=== PATIENT | female | born 1995 | race American Indian/Alaskan Native ===

== ENCOUNTER 2018-05-23 11:33 | Emergency (ER) | payer MEDICAID, OTHER ==
[2018-05-23 12:00] VITALS: BP 138/87
[2018-05-23 12:45] LABS: Bilirubin,Urine NEG (Negative); Blood,Urine NEG (Negative); Color,Urine Yellow (Yellow); Mucus,Urine FEW /HPF
[2018-05-23 12:46] LABS: HCG Qualitative,Urine Negative (Negative)
[2018-05-23] MEDS ORDERED: DUONEB *Not for PRN Use IH ONE (13:04)
--- NOTE | 2018-05-23 13:08 | Emergency Department Report ---
- General Chief Complaint: Upper Respiratory Infection Stated Complaint: FLU LIKE SYMPTOMS/ASTHMA Time Seen by Provider: 05/23/18 13:04 Source: patient Mode of arrival: Ambulatory Limitations: No Limitations - History of Present Illness Initial Comments: Patient reports wheezing, productive cough with green mucus, nasal drainage, chest tightness with generalized discomfort that started one week ago MD Complaint: cough, nasal congestion Onset/Timin -: week(s) Severity: severe Severity scale (0 -10): 10 Quality: dull Consistency: constant Improves With: nothing Worsens With: activity, deep breaths, changing head position Context: sick contacts Associated Symptoms: fever, rhinorrhea, nasal congestion, cough. denies: chills , myalgias, diaphoresis, headache, sore throat, stiff neck, chest pain, shortness of breath, abdominal pain, nausea, vomiting, diarrhea, dysuria, rash, confusion, right sweats, weight loss, epistaxis, hoarseness, ear pain Treatments Prior to Arrival: other (inhaler) - Related Data Home Medications Medication Instructions Recorded Confirmed Last Taken ALBUTEROL Inhaler [ProAir HFA 01/12/14 01/12/14 Unknown Inhaler] ALBUTEROL NEB's [Proventil 0.083% 01/12/14 01/12/14 Unknown NEBS] Previous Rx's Medication Instructions Recorded Last Taken Type Acetaminophen/Codeine [Tylenol 1 tab PO Q6H PRN #15 tab 05/23/18 Unknown Rx /Codeine # 3 tab] Albuterol Sulfate [Ventolin HFA] 2 puff IH Q4H PRN #1 hfa.aer.ad 05/23/18 Unknown Rx Azithromycin [Zithromax Z-BIENVENIDO] 250 mg PO DAILY #6 tablet 05/23/18 Unknown Rx Loratadine [Claritin] 10 mg PO DAILY #15 tablet 05/23/18 Unknown Rx predniSONE [Deltasone] 20 mg PO BID #10 tablet 05/23/18 Unknown Rx Allergies Allergy/AdvReac Type Severity Reaction Status Date / Time No Known Allergies Allergy Unverified 01/12/14 15:47 ED Review of Systems ROS: Stated complaint: FLU LIKE SYMPTOMS/ASTHMA Other details as noted in HPI Constitutional: denies: chills, fever Eyes: denies: eye pain, eye discharge, vision change ENT: congestion (nasal). denies: ear pain, throat pain, dental pain, hearing loss, epistaxis Respiratory: cough, wheezing. denies: orthopnea, shortness of breath, SOB with exertion, SOB at rest, stridor Cardiovascular: other (chest tightness). denies: chest pain, palpitations, dyspnea on exertion, orthopnea Endocrine: no symptoms reported Gastrointestinal: denies: abdominal pain, nausea, diarrhea Genitourinary: denies: urgency, dysuria, discharge Musculoskeletal: denies: back pain, joint swelling, arthralgia Skin: denies: rash, lesions Neurological: denies: headache, weakness, paresthesias Psychiatric: denies: anxiety, depression Hematological/Lymphatic: denies: easy bleeding, easy bruising ED Past Medical Hx - Past Medical History Hx Asthma: Yes Additional medical history: cardiac arrest with childbirth 2014,intubated - Surgical History Additional Surgical History: - Social History Smoking Status: Never Smoker Substance Use Type: None - Medications Home Medications: Home Medications Medication Instructions Recorded Confirmed Last Taken Type ALBUTEROL Inhaler [ProAir HFA 01/12/14 01/12/14 Unknown History Inhaler] ALBUTEROL NEB's [Proventil 0.083% 01/12/14 01/12/14 Unknown History NEBS] Acetaminophen/Codeine [Tylenol 1 tab PO Q6H PRN #15 tab 05/23/18 Unknown Rx /Codeine # 3 tab] Albuterol Sulfate [Ventolin HFA] 2 puff IH Q4H PRN #1 hfa.aer.ad 05/23/18 Unknown Rx Azithromycin [Zithromax Z-BIENVENIDO] 250 mg PO DAILY #6 tablet 05/23/18 Unknown Rx Loratadine [Claritin] 10 mg PO DAILY #15 tablet 05/23/18 Unknown Rx predniSONE [Deltasone] 20 mg PO BID #10 tablet 05/23/18 Unknown Rx ED Physical Exam - General Limitations: No Limitations General appearance: alert, in no apparent distress - Head Head exam: Present: atraumatic, normocephalic - Eye Eye exam: Present: normal appearance - ENT ENT exam: Present: normal exam, normal orophraynx, mucous membranes moist, TM's normal bilaterally, normal external ear exam, other (TTP frontal sinuses, nasal turbinates pale and boggy). Absent: mucous membranes dry - Expanded ENT Exam Expanded Ear exam: Present: normal external inspection. Absent: auricular hematoma, auricular trauma Mouth exam: Present: normal external inspection, tongue normal. Absent: drooling, trismus, muffled voice, tongue elevation, laceration Teeth exam: Present: normal inspection Throat exam: Positive: normal inspection. Negative: tonsillar erythema, tonsillomegaly, tonsillar exudate, R peritonsillar mass, L peritonsillar mass - Neck Neck exam: Present: normal inspection, full ROM. Absent: tenderness, meningismus, lymphadenopathy, thyromegaly - Respiratory Respiratory exam: Present: wheezes, decreased breath sounds. Absent: respiratory distress, rales, rhonchi, stridor, chest wall tenderness, accessory muscle use, prolonged expiratory - Cardiovascular Cardiovascular Exam: Present: regular rate, normal rhythm, normal heart sounds. Absent: systolic murmur, diastolic murmur, rubs, gallop - Extremities Exam Extremities exam: Present: normal inspection - Back Exam Back exam: Present: normal inspection - Neurological Exam Neurological exam: Present: alert, oriented X3 - Psychiatric Psychiatric exam: Present: normal affect, normal mood - Skin Skin exam: Present: warm, dry, intact, normal color. Absent: rash ED Course Vital Signs 05/23/18 11:56 Temperature 99.7 F H Pulse Rate 72 Respiratory 18 Rate Blood Pressure 138/87 O2 Sat by Pulse 98 Oximetry - Reevaluation(s) Reevaluation #1: 05/23/18 13:08 imaging study, Duoneb and oral steroid Reevaluation #2: 05/23/18 14:25 antibiotic injection ED Medical Decision Making - Lab Data Vital Signs 05/23/18 11:56 Temperature 99.7 F H Pulse Rate 72 Respiratory 18 Rate Blood Pressure 138/87 O2 Sat by Pulse 98 Oximetry - Radiology Data Radiology results: image reviewed INDICATION: Productive cough. COMPARISON: None similar. FINDINGS: PA and lateral chest radiographs demonstrate approximately 6 cm left lower lung pneumonia, possibly lingular. Approximately 1.6 cm left midlung perihilar nodular density suspected and another vague, approximately 1 cm in the right midlung zone about the same level as well. No pleural effusions or CHF. Normal cardiomediastinal silhouette. Intact bones. CONCLUSION: Left lung base pneumonia and subtle bilateral midlung zone nodules suspected, as described. - Medical Decision Making During the course of ED, Duoneb, oral steroid, antibiotic injection and imaging study were ordered. The imaging study revealed left lung base pneumonia and subtle bilateral midlung zone nodules suspected, as described. She reports breathing much better after nebulizer treatment was given. She was sent home with a Ventalin HFA, Tylenol with Codeine, Azithromycin, Prednisone and Claritin , instructed to follow up with the selective referral given at discharge, she verbalized understanding - Differential Diagnosis LLL pneumonia, URI, Sinusitis Critical care attestation.: If time is entered above; I have spent that time in minutes in the direct care of this critically ill patient, excluding procedure time. ED Disposition Clinical Impression: Pneumonia Qualifiers: Pneumonia type: due to unspecified organism Laterality: left Lung location: lower lobe of lung Qualified Code(s): J18.1 - Lobar pneumonia, unspecified organism Disposition: TO HOME OR SELFCARE Is pt being admited?: No Does the pt Need Aspirin: No Condition: Stable Instructions: Community-acquired Pneumonia (ED) Additional Instructions: Take medication as directed. No drinking or driving while taking medication. Follow up with the selective referral given at discharge. Return back to the ED for worsening symptoms or concerns Prescriptions: Acetaminophen/Codeine [Tylenol /Codeine # 3 tab] 1 tab PO Q6H PRN #15 tab PRN Reason: Pain , Severe (7-10) Albuterol Sulfate [Ventolin HFA] 2 puff IH Q4H PRN #1 hfa.aer.ad PRN Reason: Shortness Of Breath Azithromycin [Zithromax Z-BIENVENIDO] 250 mg PO DAILY #6 tablet Loratadine [Claritin] 10 mg PO DAILY #15 tablet predniSONE [Deltasone] 20 mg PO BID #10 tablet Referrals: PRIMARY CARE, [Primary Care Provider] - 3-5 Days DESMOND CASTRO MD [Staff Physician] - 3-5 Days CANDIDA RIGGS DO [Staff Physician] - 3-5 Days Time of Disposition: 14:51
--- NOTE | 2018-05-23 13:57 | XRay Report ---
CHEST 2 VIEWS INDICATION: Productive cough. COMPARISON: None similar. FINDINGS: PA and lateral chest radiographs demonstrate approximately 6 cm left lower lung pneumonia, possibly lingular. Approximately 1.6 cm left midlung perihilar nodular density suspected and another vague, approximately 1 cm in the right midlung zone about the same level as well. No pleural effusions or CHF. Normal cardiomediastinal silhouette. Intact bones. CONCLUSION: Left lung base pneumonia and subtle bilateral midlung zone nodules suspected, as described. Please correlate. Thank you for the opportunity to participate in this patient's care.
[2018-05-23] MEDS ORDERED: DELTASONE PO NR (14:00)
[2018-05-23] MEDS ORDERED: ROCEPHIN IM ONE (14:23)
[2018-05-23] MEDS ORDERED: XYLOCAINE 1% MPF 5 mL INFILTRATI ONE (14:23)
== END 2018-05-23 14:58 | disposition home or self-care (01) ==
LOC: ED 11:33
DX: J18.1 Lobar pneumonia, unspecified organism (principal); J45.909 Unspecified asthma, uncomplicated
CPT/HCPCS: 71046; 81001; 81025; 94640; 96372; 99284; J0696; J7512

== ENCOUNTER 2021-01-21 17:51 | Emergency (ER) | payer MEDICAID ==
[2021-01-21 19:20] LABS: Alanine Aminotransferase 19 units/L (7-56); Albumin 4.5 g/dL (3.9-5); BUN/Creatinine Ratio 6; Blood Urea Nitrogen 7 mg/dL (7-17); Calcium 9.5 mg/dL (8.4-10.2); Hemolysis Index 4
[2021-01-21] MEDS ORDERED: LORazepam 2 MG/ML VIAL IM PRN (19:24)
[2021-01-21] MEDS ORDERED: HALOPERIDOL LACTATE 5 MG/1 ML INJ IM PRN (19:24)
--- NOTE | 2021-01-21 19:24 | Emergency Department Report ---
ED General Adult HPI - General Chief complaint: Psych Stated complaint: BEHAVIOR DISORDER Time Seen by Provider: 01/21/21 18:30 Source: patient, family, RN notes reviewed, old records reviewed Mode of arrival: Ambulatory Limitations: No Limitations - History of Present Illness Initial comments: The patient was evaluated in the emergency department for symptoms described in the history of present illness. He/she was evaluated in the context of the [facility] COVID-19 pandemic, which necessitated consideration that the patient might be at risk for infection with the virus that causes COVID-19. Institutional protocols and algorithms that pertain to the evaluation of patients at risk for COVID-19 are in a state of rapid change based on information released by regulatory bodies including the CDC and federal and state organizations. These policies and algorithms were followed during the patient's care in the emergency department. Please note that these policies, procedures and recommendations changed on a rapid basis. The patient is a 25-year-old female. She is not known to myself previously. History primarily obtained by speaking to patient's mother, Laina Romero; [phone] The patient apparently has a past psychiatric history, and was previously maintained on venlafaxine. This was prescribed at [facility], by Dr. Sung, in [place]. The patient's mother reports that the patient has not been taking her medicine. She is not taking it in at least a week. The patient has been having erratic behavior, outbursts, "scaring her children", and has made comments about harming other people. The patient's mother believes that the patient is a danger to herself and other people. The patient's mother reports no overdose, no fever, no Covid exposure, also reports that the patient has not delivered given in the past 6 weeks. Also reports that the patient has not been assaulted, physically or sexually to her knowledge. The patient's mother denies fever, nausea, vomiting, diarrhea. The patient herself is psychotic and erratic. She states "I know where I am." The patient tells me that she is not having physical pain. The patient also tells me "I am fine." The patient states that she is not suicidal. The patient is elusive about access to guns or firearms. She would not answer questions about wanting to harm other people. The patient herself is acutely psychotic, therefore, she has difficulty describing the qualitative nature of her symptoms, exacerbating factors, relievi ng factors, and aggravating factors. -: days(s) Consistency: constant, other Improves with: other Worsens with: other - Related Data Home Medications Medication Instructions Recorded Confirmed Last Taken ALBUTEROL NEB's [Proventil 0.083% 01/12/14 01/12/14 Unknown NEBS] Albuterol Mdi (or & Nicu Only) 01/12/14 01/12/14 Unknown [ProAir HFA Inhaler] Previous Rx's Medication Instructions Recorded Last Taken Type Acetaminophen/Codeine [Tylenol 1 tab PO Q6H PRN #15 tab 05/23/18 Unknown Rx /Codeine # 3 tab] Albuterol Sulfate [Ventolin HFA] 2 puff IH Q4H PRN #1 hfa.aer.ad 05/23/18 Unknown Rx Azithromycin [Zithromax Z-BIENVENIDO] 250 mg PO DAILY #6 tablet 05/23/18 Unknown Rx Loratadine (Nf) [Claritin] 10 mg PO DAILY #15 tablet 05/23/18 Unknown Rx predniSONE [Deltasone] 20 mg PO BID #10 tablet 05/23/18 Unknown Rx Allergies Allergy/AdvReac Type Severity Reaction Status Date / Time No Known Allergies Allergy Unverified 01/12/14 15:47 ED Review of Systems ROS: Stated complaint: BEHAVIOR DISORDER Other details as noted in HPI Comment: Unobtainable due to pts medical conditions (Review of systems as per mother) Constitutional: denies: fever Eyes: denies: eye discharge Respiratory: denies: cough, shortness of breath Cardiovascular: denies: syncope Gastrointestinal: denies: nausea, vomiting, diarrhea Genitourinary: denies: frequency Psychiatric: as per HPI, other (Psychosis) ED Past Medical Hx - Past Medical History Previous Medical History?: Yes Hx Asthma: Yes Additional medical history: cardiac arrest with childbirth 2015,intubated - Surgical History Past Surgical History?: Yes Additional Surgical History: - Social History Smoking Status: Never Smoker Substance Use Type: None - Medications Home Medications: Home Medications Medication Instructions Recorded Confirmed Last Taken Type ALBUTEROL NEB's [Proventil 0.083% 01/12/14 01/12/14 Unknown History NEBS] Albuterol Mdi (or & Nicu Only) 01/12/14 01/12/14 Unknown History [ProAir HFA Inhaler] Acetaminophen/Codeine [Tylenol 1 tab PO Q6H PRN #15 tab 05/23/18 Unknown Rx /Codeine # 3 tab] Albuterol Sulfate [Ventolin HFA] 2 puff IH Q4H PRN #1 hfa.aer.ad 05/23/18 Unknown Rx Azithromycin [Zithromax Z-BIENVENIDO] 250 mg PO DAILY #6 tablet 05/23/18 Unknown Rx Loratadine (Nf) [Claritin] 10 mg PO DAILY #15 tablet 05/23/18 Unknown Rx predniSONE [Deltasone] 20 mg PO BID #10 tablet 05/23/18 Unknown Rx ED Physical Exam - General Limitations: Other (The patient is acutely psychotic) General appearance: anxious, obese, other (The patient is acutely psychotic) - Head Head exam: Present: atraumatic, normocephalic - Eye Eye exam: Present: normal appearance, EOMI. Absent: nystagmus - ENT ENT exam: Present: normal exam, normal orophraynx, mucous membranes moist, normal external ear exam - Neck Neck exam: Present: normal inspection, full ROM. Absent: tenderness, meningismus - Respiratory Respiratory exam: Present: normal lung sounds bilaterally. Absent: respiratory distress, wheezes, rales, rhonchi, stridor, decreased breath sounds - Cardiovascular Cardiovascular Exam: Present: normal rhythm, tachycardia, normal heart sounds. Absent: systolic murmur, diastolic murmur, rubs, gallop - GI/Abdominal GI/Abdominal exam: Present: soft. Absent: distended, tenderness, guarding, rebound, rigid, pulsatile mass - Extremities Exam Extremities exam: Present: normal inspection, full ROM, other (2+ pulses noted in the bilateral upper and lower extremities. There is no palpable cord. negative Homans sign. Muscular compartments are soft. The pelvis is stable.). Absent: pedal edema, calf tenderness - Back Exam Back exam: Present: normal inspection, full ROM. Absent: tenderness, CVA tenderness (R), CVA tenderness (L), paraspinal tenderness, vertebral tenderness - Neurological Exam Neurological exam: Present: alert (The patient is alert to name, location and year. She does not know the month.), normal gait, other (2+ pulses noted in the bilateral upper and lower extremities. There is no palpable cord. negative Homans sign. Muscular compartments are soft. The pelvis is stable.). Absent: motor sensory deficit - Psychiatric Psychiatric exam: Present: agitated - Skin Skin exam: Present: warm, dry, intact, normal color. Absent: rash ED Course Vital Signs 01/21/21 18:23 Temperature 98.6 F Pulse Rate 116 H Respiratory 20 Rate Blood Pressure 172/106 O2 Sat by Pulse 99 Oximetry - Reevaluation(s) Reevaluation #1: 01/21/21 20:22 During the physical examination, I am chaperoned by Ms. Cleo Roy Reevaluation #2: 01/21/21 20:26 The patient's urinalysis is contaminated. She denies urinary symptoms to myself. Patient's mother also denied urinary symptoms to myself. I will order a repeat clean-catch urinalysis, however, based off of the current urinalysis, would not initiate antibiotic therapy. ED Medical Decision Making - Lab Data Result diagrams: 01/21/21 18:35 01/21/21 18:35 Vital Signs 01/21/21 18:23 Temperature 98.6 F Pulse Rate 116 H Respiratory 20 Rate Blood Pressure 172/106 O2 Sat by Pulse 99 Oximetry Lab Results 01/21/21 01/21/21 01/21/21 Range/Units 18:35 18:35 18:35 WBC 8.0 (4.5-11.0) K/mm3 RBC 4.72 (3.65-5.03) M/mm3 Hgb 13.7 (10.1-14.3) gm/dl Hct 40.2 (30.3-42.9) % MCV 85 (79-97) fl MCH 29 (28-32) pg MCHC 34 (30-34) % RDW 13.1 L (13.2-15.2) % Plt Count 280 (140-440) K/mm3 Lymph % (Auto) 32.4 (13.4-35.0) % [place] % (Auto) 7.0 (0.0-7.3) % Eos % (Auto) 1.1 (0.0-4.3) % Baso % (Auto) 0.7 (0.0-1.8) % Lymph # (Auto) 2.6 (1.2-5.4) K/mm3 [place] # (Auto) 0.6 (0.0-0.8) K/mm3 Eos # (Auto) 0.1 (0.0-0.4) K/mm3 Baso # (Auto) 0.1 (0.0-0.1) K/mm3 Seg Neutrophils % 58.8 (40.0-70.0) % Seg Neutrophils # 4.7 (1.8-7.7) K/mm3 Sodium 136 L (137-145) mmol/L Potassium 3.4 L (3.6-5.0) mmol/L Chloride 101.2 (98-107) mmol/L Carbon Dioxide 23 (22-30) mmol/L Anion Gap 15 mmol/L BUN 7 (7-17) mg/dL Creatinine 1.2 (0.6-1.2) mg/dL Estimated GFR > 60 ml/min BUN/Creatinine Ratio 6 % Glucose 89 (65-100) mg/dL Calcium 9.5 (8.4-10.2) mg/dL Magnesium (1.7-2.3) mg/dL Total Bilirubin 0.50 (0.1-1.2) mg/dL AST 25 (5-40) units/L ALT 19 (7-56) units/L Alkaline Phosphatase 78 (35-129) units/L Total Creatine Kinase (30-135) units/L Total Protein 8.3 H (6.3-8.2) g/dL Albumin 4.5 (3.9-5) g/dL Albumin/Globulin Ratio 1.2 % TSH (0.270-4.200) mlU/mL HCG, Qual (Negative) Salicylates < 0.3 L (2.8-20.0) mg/dL Urine Opiates Screen Urine Methadone Screen Acetaminophen (10.0-30.0) ug/mL Ur Barbiturates Screen Ur Phencyclidine Scrn Ur Amphetamines Screen U Benzodiazepines Scrn Urine Cocaine Screen U Marijuana (THC) Screen Drugs of Abuse Note Plasma/Serum Alcohol (0-0.07) % 01/21/21 01/21/21 01/21/21 Range/Units 18:35 18:35 18:35 WBC (4.5-11.0) K/mm3 RBC (3.65-5.03) M/mm3 Hgb (10.1-14.3) gm/dl Hct (30.3-42.9) % MCV (79-97) fl MCH (28-32) pg MCHC (30-34) % RDW (13.2-15.2) % Plt Count (140-440) K/mm3 Lymph % (Auto) (13.4-35.0) % [place] % (Auto) (0.0-7.3) % Eos % (Auto) (0.0-4.3) % Baso % (Auto) (0.0-1.8) % Lymph # (Auto) (1.2-5.4) K/mm3 [place] # (Auto) (0.0-0.8) K/mm3 Eos # (Auto) (0.0-0.4) K/mm3 Baso # (Auto) (0.0-0.1) K/mm3 Seg Neutrophils % (40.0-70.0) % Seg Neutrophils # (1.8-7.7) K/mm3 Sodium (137-145) mmol/L Potassium (3.6-5.0) mmol/L Chloride (98-107) mmol/L Carbon Dioxide (22-30) mmol/L Anion Gap mmol/L BUN (7-17) mg/dL Creatinine (0.6-1.2) mg/dL Estimated GFR ml/min BUN/Creatinine Ratio % Glucose (65-100) mg/dL Calcium (8.4-10.2) mg/dL Magnesium (1.7-2.3) mg/dL Total Bilirubin (0.1-1.2) mg/dL AST (5-40) units/L ALT (7-56) units/L Alkaline Phosphatase (35-129) units/L Total Creatine Kinase (30-135) units/L Total Protein (6.3-8.2) g/dL Albumin (3.9-5) g/dL Albumin/Globulin Ratio % TSH (0.270-4.200) mlU/mL HCG, Qual Negative (Negative) Salicylates (2.8-20.0) mg/dL Urine Opiates Screen Urine Methadone Screen Acetaminophen 5.0 L (10.0-30.0) ug/mL Ur Barbiturates Screen Ur Phencyclidine Scrn Ur Amphetamines Screen U Benzodiazepines Scrn Urine Cocaine Screen U Marijuana (THC) Screen Drugs of Abuse Note Plasma/Serum Alcohol < 0.01 (0-0.07) % 01/21/21 01/21/21 01/21/21 Range/Units 18:35 18:35 19:30 WBC (4.5-11.0) K/mm3 RBC (3.65-5.03) M/mm3 Hgb (10.1-14.3) gm/dl Hct (30.3-42.9) % MCV (79-97) fl MCH (28-32) pg MCHC (30-34) % RDW (13.2-15.2) % Plt Count (140-440) K/mm3 Lymph % (Auto) (13.4-35.0) % [place] % (Auto) (0.0-7.3) % Eos % (Auto) (0.0-4.3) % Baso % (Auto) (0.0-1.8) % Lymph # (Auto) (1.2-5.4) K/mm3 [place] # (Auto) (0.0-0.8) K/mm3 Eos # (Auto) (0.0-0.4) K/mm3 Baso # (Auto) (0.0-0.1) K/mm3 Seg Neutrophils % (40.0-70.0) % Seg Neutrophils # (1.8-7.7) K/mm3 Sodium (137-145) mmol/L Potassium (3.6-5.0) mmol/L Chloride (98-107) mmol/L Carbon Dioxide (22-30) mmol/L Anion Gap mmol/L BUN (7-17) mg/dL Creatinine (0.6-1.2) mg/dL Estimated GFR ml/min BUN/Creatinine Ratio % Glucose (65-100) mg/dL Calcium (8.4-10.2) mg/dL Magnesium 2.10 (1.7-2.3) mg/dL Total Bilirubin (0.1-1.2) mg/dL AST (5-40) units/L ALT (7-56) units/L Alkaline Phosphatase (35-129) units/L Total Creatine Kinase 404 H (30-135) units/L Total Protein (6.3-8.2) g/dL Albumin (3.9-5) g/dL Albumin/Globulin Ratio % TSH 3.590 (0.270-4.200) mlU/mL HCG, Qual (Negative) Salicylates (2.8-20.0) mg/dL Urine Opiates Screen Negative Urine Methadone Screen Negative Acetaminophen (10.0-30.0) ug/mL Ur Barbiturates Screen Negative Ur Phencyclidine Scrn Negative Ur Amphetamines Screen Negative U Benzodiazepines Scrn Negative Urine Cocaine Screen Negative U Marijuana (THC) Screen Negative Drugs of Abuse Note Disclamer Plasma/Serum Alcohol (0-0.07) % - Medical Decision Making Differential diagnosis, including but not limited to: Psychosis, medication noncompliance, medical clearance for psychiatric placement Assessment and plan: 25-year-old female, noncompliant with venlafaxine, as per mother, has an underlying psychiatric diagnosis, we are uncertain of the exact diagnosis, presenting with acute psychosis, disorganized behavior, aggressive behavior, and obvious inability to care for self. Patient's mother endorses that she feels that the patient may represent a danger to herself and other people. My opinion, the patient is acutely psychotic, disorganized, and lacks decision-making capacity. Her physical examination is fairly unremarkable. No obvious external signs of trauma on my examination. Patient's mother has provided verbal consent for chemical, and physical restraint if necessary. Patient is placed on a 1013. Appropriate laboratory studies ordered. Covid test has been ordered in anticipation of psychiatric placement. Mild hypokalemia appreciated, we will treat this. At this point in time, patient does not appear to have an immediate medical contraindication to psychiatric admission, evaluation, consultation and placement. Critical care attestation.: If time is entered above; I have spent that time in minutes in the direct care of this critically ill patient, excluding procedure time. ED Disposition Clinical Impression: Acute psychosis, Hypokalemia, Noncompliance with medication regimen, Medical clearance for psychiatric admission Disposition: [id number]/TX-[id number] PSY HOSP/PSY UNIT Is pt being admited?: No Does the pt Need Aspirin: No Condition: Good Referrals: PRIMARY CARE, [Primary Care Provider] - 3-5 Days
[2021-01-21 19:27] LABS: Basophils # (Auto) 0.1 K/mm3 (0.0-0.1); Basophils % (Auto) 0.7 % (0.0-1.8); Eosinophils # (Auto) 0.1 K/mm3 (0.0-0.4); Eosinophils % (Auto) 1.1 % (0.0-4.3); Hematocrit 40.2 % (30.3-42.9); Hemoglobin 13.7 gm/dl (10.1-14.3); Lymphocytes # (Auto) 2.6 K/mm3 (1.2-5.4); Lymphocytes % (Auto) 32.4 % (13.4-35.0); Mean Corpuscular HGB Conc 34 % (30-34); Mean Corpuscular Volume 85 fl (79-97); Monocytes # (Auto) 0.6 K/mm3 (0.0-0.8); Platelet Count 280 K/mm3 (140-440); Red Blood Count 4.72 M/mm3 (3.65-5.03); Red Cell Distribution Width 13.1 % (13.2-15.2)
[2021-01-21] MEDS ORDERED: POTASSIUM CHLORIDE ER 20 MEQ TAB PO ONE (19:35)
[2021-01-21 20:04] LABS: Amphetamine Screen,Urine Negative; Benzodiazepines Screen,Urine Negative; Cannabinoid Screen,Urine Negative; Cocaine Screen,Urine Negative; Methadone Screen,Urine Negative; Opiate Screen,Urine Negative
[2021-01-21] MEDS ORDERED: ACETAMINOPHEN 325 MG TAB PO PRN (20:04)
[2021-01-21] MEDS ORDERED: METOCLOPRAMIDE 10 MG TAB PO PRN (20:04)
[2021-01-21] MEDS ORDERED: ALBUTEROL 8.5 GM MDI INHALATION IH PRN (20:05)
[2021-01-21 20:23] LABS: Bilirubin,Urine NEG (Negative); Blood,Urine NEG (Negative); Color,Urine Yellow (Yellow); Granular Casts,Urine 4 /LPF; Hyaline Casts,Urine 1 /LPF; Mucus,Urine 1+ /HPF; Urobilinogen,Urine < 2.0 mg/dL (<2.0)
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
[2021-01-22] MEDS ORDERED: POTASSIUM CHLORIDE ER 20 MEQ TAB PO SCH (10:00)
[2021-01-22] MEDS ORDERED: NITROFURANTOIN MONOHYD/M-CRYST 100 MG CAP PO SCH (10:00)
[2021-01-22] MEDS ORDERED: amLODIPine 5 MG TAB PO SCH (13:00)
[2021-01-22 15:13] VITALS: BP 148/93
== END 2021-01-22 16:53 ==
LOC: ED 17:51
DX: F23 Brief psychotic disorder (principal); E87.6 Hypokalemia; Z91.14 Patient's other noncompliance with medication regimen; Z04.6 Encounter for general psychiatric examination, requested by authority; Z20.822 Contact with and (suspected) exposure to COVID-19; J45.909 Unspecified asthma, uncomplicated; Z79.899 Other long term (current) drug therapy
CPT/HCPCS: 36415; 80053; 80307; 81001; 82550; 83735; 84443; 84703; 85025; 87086; 96372; 99285; J1630; J2060; U0003; 80320; G0480

== ENCOUNTER 2022-04-04 22:06 | Emergency (ER) | payer MEDICARE ==
--- NOTE | 2022-04-04 22:41 | Emergency Department Report ---
Blank Doc - Documentation Documentation: [facility] Consult Note # Demographics Consult Type: Acute Stroke Level 1 (0-4.5 hrs) Patient Location: Emergency Room First Name: Sandra Last Name: Michael Date of : 1995 Facility: [facility] Time of Initial Page ( Time): 04/04/2022, 22:24 Time of Return Call ( Time): 04/04/2022, 22:25 # HPI History: presented to ER with slurred speech, left arm weakness, drooling that started 10 min prior to arrival to ER. # Scores Time of exam and NIHSS ( Time): 04/04/2022, 22:40 Level of Consciousness 1a: [0] = Alert; keenly responsive LOC Questions 1b: [0] = Answers both questions correctly LOC Commands 1c: [0] = Performs both tasks correctly Best Gaze 2: [0] = Normal Visual 3: [0] = No visual loss Facial Palsy 4: [0] = Normal symmetrical movements Motor Arm Left 5a: [0] = No drift Motor Arm Right 5b: [0] = No drift Motor Leg Left 6a: [0] = No drift Motor Leg Right 6b: [0] = No drift Limb Ataxia 7: [0] = Absent Sensory 8: [0] = Normal Best Language 9: [0] = No aphasia Dysarthria 10: [0] = Normal Extinction and Inattention 11: [0] = No abnormality NIHSS Total: 0 # Data Head CT: no bleed # Assessment Impression: resolved slurred speech, weakness. NIHSS 0 Unclear etiology. low suspicion of stroke or tia. # Plan Thrombolytic/Intervention: NOT IV Thrombolysis or IA Intervention candidate Thrombolytic Exclusion (< 3 hour window): NIHSS = 0 Intraarterial Exclusion: other NIHSS is zero Target Blood Pressure: SBP < 220 Labs: CBC comprehensive metabolic panel lipid panel TSH ua Other: If patient has any neurological deterioration please call me back immediately I have discussed my recommendations with the referring provider Additional Recommendations: If headache, consider migraine cocktail. If back to baseline can consider dc home. Outpatient PCP or neurology follow up. Disposition: admit # Logistics Telemedicine: Interactive 2 way audio and visual telecommunication technology was utilized during this visit
--- NOTE | 2022-04-04 22:50 | Cat Scan Report ---
CT HEAD WITHOUT CONTRAST INDICATION / CLINICAL INFORMATION: neuro deficits <6hrs or sx present upon awakening. TECHNIQUE: All CT scans at this location are performed using CT dose reduction for ALARA by means of automated exposure control. COMPARISON: None available. FINDINGS: HEMORRHAGE: None. EXTRA-AXIAL SPACES: Normal in size and morphology for the patient's age. VENTRICULAR SYSTEM: Normal in size and morphology for the patient's age. CEREBRAL PARENCHYMA: No significant abnormality. No acute territorial infarct. MIDLINE SHIFT / HERNIATION: None. CEREBELLUM / BRAINSTEM: No significant abnormality. ORBITS: Normal as visualized SOFT TISSUES: No significant abnormality. SKULL: No significant abnormality. PARANASAL SINUSES / MASTOID AIR CELLS: Normal as visualized ADDITIONAL FINDINGS: None. IMPRESSION: 1. No acute intracranial abnormality. Signer Name: Haile Meyer DO Signed: 04/04/2022 10:46 PM Workstation Name: [id number]
--- NOTE | 2022-04-04 22:51 | Emergency Department Report ---
ED Neuro Deficit HPI - General Chief Complaint: Neuro Symptoms/Deficit Stated Complaint: WEAKNESS/SLURRED SPEECH ON LEFT SIDE Time Seen by Provider: 04/04/22 22:32 Source: patient Mode of arrival: Ambulatory Limitations: Physical Limitation - History of Present Illness Initial Comments: Patient is a 26-year-old female brought in by mother for evaluation of cute onset left arm numbness with slurred speech that began approximately 15 minutes prior to arrival. - Related Data Home Medications: Home Medications Medication Instructions Recorded Confirmed Last Taken ALBUTEROL NEB's [Proventil 0.083% 01/12/14 01/12/14 Unknown NEBS] Albuterol Mdi (or & Nicu Only) 01/12/14 01/12/14 Unknown [ProAir HFA Inhaler] Previous Rx's Medication Instructions Recorded Last Taken Type Acetaminophen/Codeine [Tylenol 1 tab PO Q6H PRN #15 tab 05/23/18 Unknown Rx /Codeine # 3 tab] Albuterol Sulfate [Ventolin HFA] 2 puff IH Q4H PRN #1 hfa.aer.ad 05/23/18 Unk nown Rx Azithromycin [Zithromax Z-BIENVENIDO] 250 mg PO DAILY #6 tablet 05/23/18 Unknown Rx Loratadine (Nf) [Claritin] 10 mg PO DAILY #15 tablet 05/23/18 Unknown Rx predniSONE [Deltasone] 20 mg PO BID #10 tablet 05/23/18 Unknown Rx Allergies/Adverse Reactions: Allergies Allergy/AdvReac Type Severity Reaction Status Date / Time No Known Allergies Allergy Unverified 01/12/14 15:47 ED Review of Systems ROS: Stated complaint: WEAKNESS/SLURRED SPEECH ON LEFT SIDE Other details as noted in HPI Constitutional: denies: chills, fever Respiratory: denies: cough, shortness of breath, wheezing Cardiovascular: denies: chest pain, palpitations Gastrointestinal: denies: abdominal pain, nausea, diarrhea Genitourinary: denies: urgency, dysuria, discharge Musculoskeletal: denies: back pain, joint swelling, arthralgia Skin: denies: rash, lesions Neurological: numbness, paresthesias Psychiatric: denies: anxiety, depression ED Past Medical Hx - Past Medical History Previous Medical History?: Yes Hx Psychiatric Treatment: Yes (Behavioral disorder) Hx Asthma: Yes Additional medical history: cardiac arrest with childbirth 2014,intubated - Surgical History Past Surgical History?: Yes Additional Surgical History: - Social History Smoking Status: Never Smoker Substance Use Type: None - Medications Home Medications: Home Medications Medication Instructions Recorded Confirmed Last Taken Type ALBUTEROL NEB's [Proventil 0.083% 01/12/14 01/12/14 Unknown History NEBS] Albuterol Mdi (or & Nicu Only) 01/12/14 01/12/14 Unknown History [ProAir HFA Inhaler] Acetaminophen/Codeine [Tylenol 1 tab PO Q6H PRN #15 tab 05/23/18 Unknown Rx /Codeine # 3 tab] Albuterol Sulfate [Ventolin HFA] 2 puff IH Q4H PRN #1 hfa.aer.ad 05/23/18 Unknown Rx Azithromycin [Zithromax Z-BIENVENIDO] 250 mg PO DAILY #6 tablet 05/23/18 Unknown Rx Loratadine (Nf) [Claritin] 10 mg PO DAILY #15 tablet 05/23/18 Unknown Rx predniSONE [Deltasone] 20 mg PO BID #10 tablet 05/23/18 Unknown Rx ED Neuro Physical Exam - General Limitations: Physical Limitation General appearance: alert, in no apparent distress Suspected Stroke: No - Head Head exam: Present: atraumatic, normocephalic - Eye Eye exam: Present: normal appearance, PERRL, EOMI - Neck Neck exam: Present: normal inspection - Respiratory Respiratory exam: Present: normal lung sounds bilaterally. Absent: respiratory distress - Cardiovascular Cardiovascular Exam: Present: regular rate, normal rhythm. Absent: systolic murmur, diastolic murmur, rubs, gallop - GI/Abdominal GI/Abdominal exam: Present: soft, normal bowel sounds - Rectal Rectal exam: Present: deferred - Extremities Exam Extremities exam: Present: normal inspection, full ROM - Neurological Exam Neurological exam: Present: alert, oriented X3, CN II-XII intact - NIHSS Assessment Interval: Baseline 1a. Level of Consciousness: alert/keenly responsive 1b. LOC Questions: answers both correctly 1c. LOC Commands: performs tasks correctly 2. Best Gaze: normal 3. Visual: no visual loss 4. Facial Palsy: normal symmetrical movement 5b. Motor Arm Right: no drift 5a. Motor Arm Left: no drift 6a. Motor Leg Left: no drift 6b. Motor Leg Right: no drift 7. Limb Ataxia: absent 8. Sensory: normal 9. Best Language: no aphasia 10. Dysarthria: normal 11. Extinction/Inattention: no abnormality Total Score: 0 Stroke Severity: No Stroke Symptoms - Psychiatric Psychiatric exam: Present: normal affect, normal mood - Skin Skin exam: Present: warm, dry, intact, normal color ED Course Vital Signs 04/04/22 04/04/22 04/04/22 22:14 23:00 23:15 Temperature 98.7 F Pulse Rate 97 H 76 75 Respiratory 20 15 25 H Rate Blood Pressure 137/96 O2 Sat by Pulse 98 100 98 Oximetry 04/04/22 23:31 Temperature Pulse Rate 70 Respiratory 22 Rate Blood Pressure O2 Sat by Pulse 99 Oximetry - Lab Data Result diagrams: 04/04/22 22:50 04/04/22 22:50 Lab Results 04/04/22 04/04/22 04/04/22 Range/Units 22:50 22:50 22:50 WBC 9.6 (4.5-11.0) K/mm3 RBC 4.76 (3.65-5.03) M/mm3 Hgb 13.1 (10.1-14.3) gm/dl Hct 40.4 (30.3-42.9) % MCV 85 (79-97) fl MCH 28 (28-32) pg MCHC 32 (30-34) % RDW 13.7 (13.2-15.2) % Plt Count 219 (140-440) K/mm3 Lymph % (Auto) 35.7 H (13.4-35.0) % Brooks % (Auto) 4.9 (0.0-7.3) % Eos % (Auto) 3.8 (0.0-4.3) % Baso % (Auto) 0.4 (0.0-1.8) % Lymph # (Auto) 3.4 (1.2-5.4) K/mm3 Brooks # (Auto) 0.5 (0.0-0.8) K/mm3 Eos # (Auto) 0.4 (0.0-0.4) K/mm3 Baso # (Auto) 0.0 (0.0-0.1) K/mm3 Seg Neutrophils % 55.2 (40.0-70.0) % Seg Neutrophils # 5.3 (1.8-7.7) K/mm3 PT 13.6 (12.2-14.9) Sec. INR 0.94 (0.87-1.13) APTT 32.9 (24.2-36.6) Sec. Thrombin Time (15.1-19.6) Sec. Sodium 139 (137-145) mmol/L Potassium 3.8 (3.6-5.0) mmol/L Chloride 101.7 (98-107) mmol/L Carbon Dioxide 26 (22-30) mmol/L Anion Gap 15 mmol/L BUN 11 (7-17) mg/dL Creatinine 1.3 H (0.6-1.2) mg/dL Estimated GFR 59 ml/min BUN/Creatinine Ratio 8 % Glucose 116 H (65-100) mg/dL Calcium 9.0 (8.4-10.2) mg/dL Troponin T < 0.010 (0.00-0.029) ng/mL 04/04/22 Range/Units 22:50 WBC (4.5-11.0) K/mm3 RBC (3.65-5.03) M/mm3 Hgb (10.1-14.3) gm/dl Hct (30.3-42.9) % MCV (79-97) fl MCH (28-32) pg MCHC (30-34) % RDW (13.2-15.2) % Plt Count (140-440) K/mm3 Lymph % (Auto) (13.4-35.0) % Brooks % (Auto) (0.0-7.3) % Eos % (Auto) (0.0-4.3) % Baso % (Auto) (0.0-1.8) % Lymph # (Auto) (1.2-5.4) K/mm3 Brooks # (Auto) (0.0-0.8) K/mm3 Eos # (Auto) (0.0-0.4) K/mm3 Baso # (Auto) (0.0-0.1) K/mm3 Seg Neutrophils % (40.0-70.0) % Seg Neutrophils # (1.8-7.7) K/mm3 PT (12.2-14.9) Sec. INR (0.87-1.13) APTT (24.2-36.6) Sec. Thrombin Time 16.4 (15.1-19.6) Sec. Sodium (137-145) mmol/L Potassium (3.6-5.0) mmol/L Chloride (98-107) mmol/L Carbon Dioxide (22-30) mmol/L Anion Gap mmol/L BUN (7-17) mg/dL Creatinine (0.6-1.2) mg/dL Estimated GFR ml/min BUN/Creatinine Ratio % Glucose (65-100) mg/dL Calcium (8.4-10.2) mg/dL Troponin T (0.00-0.029) ng/mL - EKG Data -: EKG Interpreted by Me EKG shows normal: sinus rhythm, axis, intervals, QRS complexes, ST-T waves Rate: normal - Medical Decision Making 18-year-old female presenting with complaint of acute onset left arm numbness with slurred speech. On my examination NIH scale is 0. Teleneurology evaluation also obtained. NIH scale is [address] head is normal as is chest x-ray. CBC, CMP are unremarkable. Vital signs are currently stable. Acute CVA unlikely. Patient stable for discharge home with return precautions. Critical care attestation.: If time is entered above; I have spent that time in minutes in the direct care of this critically ill patient, excluding procedure time. ED Disposition Clinical Impression: Difficulty speaking, Left arm numbness Disposition: 01 HOME / SELF CARE / HOMELESS Is pt being admited?: No Does the pt Need Aspirin: No Condition: Stable Instructions: Transient Ischemic Attack, [id number] Time of Disposition: 00:14
[2022-04-04 22:58] LABS: Basophils % (Auto) 0.4 % (0.0-1.8); Eosinophils # (Auto) 0.4 K/mm3 (0.0-0.4); Eosinophils % (Auto) 3.8 % (0.0-4.3); Hematocrit 40.4 % (30.3-42.9); Hemoglobin 13.1 gm/dl (10.1-14.3); Lymphocytes # (Auto) 3.4 K/mm3 (1.2-5.4); Lymphocytes % (Auto) 35.7 % (13.4-35.0); Mean Corpuscular HGB Conc 32 % (30-34); Mean Corpuscular Volume 85 fl (79-97); Monocytes # (Auto) 0.5 K/mm3 (0.0-0.8); Monocytes % (Auto) 4.9 % (0.0-7.3); Platelet Count 219 K/mm3 (140-440); Red Blood Count 4.76 M/mm3 (3.65-5.03); Red Cell Distribution Width 13.7 % (13.2-15.2)
--- NOTE | 2022-04-04 23:08 | XRay Report ---
CHEST 1 VIEW 04/04/2022 10:01 PM INDICATION / CLINICAL INFORMATION: neuro deficit. COMPARISON: None available. FINDINGS: SUPPORT DEVICES: None. HEART / MEDIASTINUM: No significant abnormality. LUNGS / PLEURA: No significant pulmonary or pleural abnormality. No pneumothorax. ADDITIONAL FINDINGS: No significant additional findings. IMPRESSION: 1. No acute findings. Signer Name: Haile Meyer DO Signed: 04/04/2022 11:04 PM Workstation Name: [id number]
[2022-04-04 23:09] LABS: INR 0.94 (0.87-1.13); Partial Thromboplastin Time 32.9 Sec. (24.2-36.6)
[2022-04-04 23:11] LABS: BUN/Creatinine Ratio 8; Blood Urea Nitrogen 11 mg/dL (7-17); Hemolysis Index 10
[2022-04-05 00:15] VITALS: BP 136/80
--- NOTE | 2022-04-05 09:21 | Electrocardiograph Report ---
[facility] Test Date: 2022-04-04 Test Time: 23:05:01 Pat Name: BEATRIZ MONTAÑO Department: Room: Gender: F Historiography Professor: ZOIE : 1995 Requested By: ED DOC Order Number: [id number] Reading MD: Mauro Mustafa Measurements Intervals [place] Rate: 73 P: 93 AR: 195 QRS: 7 QRSD: 105 T: 40 QT: 440 QTc: 484 Interpretive Statements Sinus rhythm No previous ECG available for comparison Electronically Signed On 04-05-2022 9:21:27 EDT by Mauro Mustafa
== END 2022-04-05 01:06 | disposition home or self-care (01) ==
LOC: ED 22:06
DX: R47.9 Unspecified speech disturbances (principal); R20.2 Paresthesia of skin; J45.909 Unspecified asthma, uncomplicated
CPT/HCPCS: 36415; 70450; 71045; 80048; 84484; 85025; 85610; 85670; 85730; 93005; 99284